=== PATIENT | male | born 1980 | race Caucasian/White ===

== ENCOUNTER 2017-12-25 08:14 | Inpatient (IN) | payer OTHER ==
[2017-12-25 10:27] VITALS: BMI 22.1
--- NOTE | 2017-12-25 10:52 | HP ---
Admission [facility] Chief Complaint: Patient presents for Rehab services for cocaine/opiates/marajuana dependence. Allergies/Adverse Reactions: Allergies Allergy/AdvReac Type Severity Reaction Status Date / Time Fish Containing Products Allergy Severe Swelling Verified 12/25/17 09:59 No Known Drug Allergies Allergy Verified 12/25/17 09:59 History of Present Illness: Patient presents for Rehab services for Opiod/cocaine and Marajuana dependence. Patient began snorting and injecting Heroin at age 23. Injects up to one bundle daily. Also starting smoking cocaine at age 23 and Marajuana at age 14. Smokes marajuana weekly and uses up to 100 dollars worth of cocaine daily. Last time patient used heroin and cocaine was 12/24/17. Has history of Bipolar disorder and Hep C (treated in 2010). Denies SI/HI and suicide attempts. Currently treated with Suboxone but patient does not take medication when using heroin. Prescription verified in ISTOP reference number [id number]. last dose of suboxone today, 8mg film divided in 4 pieces and patient took 1/4 (2mg). - Ebola screening Have you traveled outside of the country in the last 21 days: No (N) Have you had contact with anyone from an Ebola affected area: No Have you been sick,other than usual withdrawal symptoms: No Do you have a fever: No - Review of Systems Constitutional: Changes in sleep, Unexplained wgt Loss EENT: reports: Nose Congestion Respiratory: reports: No Symptoms reported Cardiac: reports: No Symptoms Reported GI: reports: Poor Fluid Intake, Abdominal cramping Musculoskeletal: reports: Back Pain Integumentary: reports: Rash Neuro: reports: No Symptoms reported Endocrine: reports: Unexplained Weight Loss Hematology: reports: No Symptoms Reported Psychiatric: reports: Anxious, Depressed, other (Forgetful with date) Patient History - Patient Medical History Hx Anemia: No Hx Asthma: No Hx Chronic Obstructive Pulmonary Disease (COPD): No Hx Cancer: No Hx Cardiac Disorders: No Hx Congestive Heart Failure: No Hx Hypertension: No Hx Hypercholesterolemia: No Hx Pacemaker: No HX Cerebrovascular Accident: No Hx Seizures: No Hx Dementia: No Hx Diabetes: No Hx Gastrointestinal Disorders: No Hx Liver Disease: No Hx Genitourinary Disorders: No Hx Sexually Transmitted Disorders: No Hx Renal Disease (ESRD): No Hx Thyroid Disease: No Hx Human Immunodeficiency Virus (HIV): No (NEGATIVE HX) Hx Hepatitis C: Yes (TREATED IN 2010, cleared virus) Hx Depression: Yes Hx Suicide Attempt: No Hx Bipolar Disorder: Yes (ON MED) Hx Schizophrenia: No - Patient Surgical History Past Surgical History: No Hx Neurologic Surgery: No Hx Cataract Extraction: No Hx Cardiac Surgery: No Hx Lung Surgery: No Hx Breast Surgery: No Hx Breast Biopsy: No Hx Abdominal Surgery: No Hx Appendectomy: No Hx Cholecystectomy: No Hx Genitourinary Surgery: No Hx Orthopedic Surgery: No Anesthesia Reaction: No - PPD History Previous Implant?: Yes Documented Results: Positive w/o proof Results: CXR NEG 10/25 PPD to be Administered?: No - Smoking Cessation Smoking history: Current every day smoker Have you smoked in the past 12 months: Yes Aproximately how many cigarettes per day: 20 Cigars Per Day: 0 Hx Chewing Tobacco Use: No Initiated information on smoking cessation: Yes 'Breaking Loose' booklet given: 12/25/17 - Substance & Tx. History Hx Alcohol Use: No Hx Substance Use: Yes Substance Use Type: Alcohol, Cocaine, Marijuana, Opiates Hx Substance Use Treatment: Yes - Substances Abused Heroin Route: Injection Frequency: 1-2 times per week Amount used: 1/2 gm Age of first use: 23 Date of Last Use: 12/24/17 Crack Route: Smoking Frequency: Daily Amount used: $100 Age of first use: 23 Date of Last Use: 12/24/17 Alcohol-beer Route: Oral Frequency: 1-2 times per week Amount used: 2-3 (12 oz.) Age of first use: 15 Date of Last Use: 12/24/17 Family Disease History - Family Disease History Family Disease History: Heart Disease: Father (HTN,alcohol ABUSE, ) Admission Physical Exam S - Vital Signs Vital Signs: Vital Signs - 24 hr 12/25/17 10:22 Temperature 97 F L Pulse Rate 78 Respiratory 20 Rate Blood Pressure 124/91 - Physical General Appearance: Yes: Disheveled, Thin, Anxious HEENTM: Yes: EOMI, Hearing grossly Normal, Normocephalic, Normal Voice, AUBREY, Pharynx Normal, Nasal Congestion Respiratory: Yes: Chest Non-Tender, Lungs Clear, Normal Breath Sounds, No Respiratory Distress, No Accessory Muscle Use Neck: Yes: Within Normal Limits, No masses,lesions,Nodules, Supple, Trachea in good position Breast: Yes: Breast Exam Deferred Cardiology: Yes: Regular Rhythm, Regular Rate, S1, S2 Abdominal: Yes: Normal Bowel Sounds, Non Tender, Flat, Soft Genitourinary: Yes: Within Normal Limits Back: Yes: Normal Inspection, Muscle Spasm Musculoskeletal: Yes: full range of Motion, Gait Steady, Back pain, Muscle Pain Extremities: Yes: Normal Range of Motion, Non-Tender, Other (track osorio) Neurological: Yes: oil lease buyer II-XII NML intact, Fully Oriented, Alert, Motor Strength 5/5 Integumentary: Yes: Normal Color, Dry, Warm, Track Osorio Lymphatic: Yes: Within Normal Limits - Diagnostic (1) Weight loss Current Visit: Yes Status: Acute (2) Encounter for monitoring Suboxone maintenance therapy Current Visit: Yes Status: Acute (3) Bipolar I disorder with depression Current Visit: Yes Status: Chronic (4) Cannabis dependence, uncomplicated Current Visit: Yes Status: Chronic (5) Cocaine dependence, uncomplicated Current Visit: Yes Status: Chronic (6) Nicotine dependence Current Visit: Yes Status: Chronic Qualifiers: Nicotine product type: cigarettes Substance use status: uncomplicated Qualified Code(s): F17.210 - Nicotine dependence, cigarettes, uncomplicated (7) Opioid dependence Current Visit: Yes Status: Chronic Qualifiers: Substance use status: uncomplicated Qualified Code(s): F11.20 - Opioid dependence, uncomplicated Cleared for Admission [facility] - Detox or Rehab Claeared for Rehab Admission: Yes [facility] Breath Alcohol Content Breath Alcohol Content: 0 Urine Drug Screen - Results Drug Screen Negative: No Urine Drug Screen Results: THC-Marijuana, JODEE-Cocaine, OPI-Opiates, TCA- Tricyclic Antidepress Inpatient Rehab Admission - Initial Determination Are CD services needed?: Yes Free of communicable disease: Yes Not in need of hospitalization: Yes - Rehab Admission Criteria Previous failed treatment: Yes Poor recovery environment: Yes Comorbidities: Yes Lacks judgement: Yes Patient is meeting Inpatient Rehab admission criteria:: Yes
[2017-12-25] MEDS ORDERED: guaiFENesin/D-METHORPHAN HB 10 ML UNIT-DOSE CUPS PO PRN (10:59)
[2017-12-25] MEDS ORDERED: ACETAMINOPHEN 325 MG TABLET (FP) PO PRN (10:59)
[2017-12-25] MEDS ORDERED: MAGNESIUM CITRATE 300 ML BOTTLE PO PRN (10:59)
[2017-12-25] MEDS ORDERED: MAG HYDROX/AL HYDROX/SIMETH 30 ML UNIT-DOSE CUP PO PRN (10:59)
[2017-12-25] MEDS ORDERED: IBUPROFEN 400 MG TABLET (FP) PO PRN (10:59)
[2017-12-25] MEDS ORDERED: MAGNESIUM HYDROX 2400MG/30ML ORAL SUSPENSION 30 ML CUP PO PRN (10:59)
[2017-12-25] MEDS ORDERED: LOPERAMIDE HCL 2 MG CAPSULE PO PRN (10:59)
[2017-12-25] MEDS ORDERED: MENTHOL/PHENOL 1 EACH UD MM PRN (10:59)
[2017-12-25] MEDS ORDERED: P-EPHED 60MG/TRIPROLIDI 2.5MG TABLET PO PRN (10:59)
[2017-12-25] MEDS ORDERED: NICOTINE POLACRILEX 2 MG GUM BUC PRN (11:04)
[2017-12-25] MEDS ORDERED: BUPRENORPHINE/NALOXONE 2 MG/0.5 MG FILM PACKET SL ONE (13:45)
[2017-12-25 16:15] LABS: HEMATOCRIT 39.9 % (35.4-49); HEMOGLOBIN 13.6 GM/dL (11.7-16.9); MCH 29.7 pg (25.7-33.7); MCHC 34.1 g/dl (32.0-35.9); MEAN PLT VOLUME 7.4 fl (7.5-11.1); PLATELET COUNT 323 K/MM3 (134-434); RBC 4.59 M/mm3 (4.00-5.60); RDW 12.9 % (11.9-15.9); WHITE BLOOD COUNT 7.5 K/mm3 (4.0-10.0)
[2017-12-25 17:27] LABS: URINE APPEARANCE SLCLOUDY; URINE BILIRUBIN NEGATIVE (<2.0 mg/dL); URINE COLOR YELLOW; URINE GLUCOSE (UA) NEGATIVE (NEGATIVE); URINE KETONE NEGATIVE (NEGATIVE); URINE LEUK ESTERASE NEGATIVE (NEGATIVE); URINE NITRITE NEGATIVE (NEGATIVE); URINE PROTEIN NEGATIVE (NEGATIVE); URINE UROBILINOGEN NEGATIVE mg/dL (0.2-1.0)
[2017-12-25 18:13] LABS: ALBUMIN 3.8 g/dl (3.4-5.0); ALK PHOS 84 U/L (45-117); ANION GAP 8 (8-16); BILIRUBIN,TOTAL 0.3 mg/dL (0.2-1.0); BLOOD UREA NITROGEN 11 mg/dL (7-18); CHLORIDE 101 mmol/L (98-107); CO2 30 mmol/L (21-32); CREATININE 0.8 mg/dL (0.7-1.3); GLUCOSE,RANDOM 91 mg/dL (74-106); POTASSIUM 5.1 mmol/L (3.5-5.1); SGOT/AST 17 U/L (15-37); SGPT/ALT 19 U/L (12-78); SODIUM 139 mmol/L (136-145); TOT PROT 7.5 g/dl (6.4-8.2)
[2017-12-25] MEDS: THIAMINE HCL 100 MG TABLET (FP) PO SCH (21:13)
[2017-12-25] MEDS ORDERED: MELATONIN 5 MG TABLETS PO PRN (22:00)
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
[2017-12-26] MEDS: BUPRENORPHINE/NALOXONE 2 MG/0.5 MG FILM PACKET SL SCH (09:48)
[2017-12-26] MEDS: FLUCONAZOLE 100 MG TABLET (UD) PO SCH (09:48)
[2017-12-26] MEDS: PRENATAL VITAMINS W/ FOLIC ACID TABLET (FP) PO SCH (09:48)
[2017-12-26] MEDS: NICOTINE 21 MG/24 HOURS TOPICAL PATCH TD SCH (09:49)
--- NOTE | 2017-12-26 12:02 | EKG ---
Test Reason : Blood Pressure : / mmHG Vent. Rate : 066 BPM Atrial Rate : 066 BPM P-R Int : 172 ms QRS Dur : 096 ms QT Int : 412 ms P-R-T Axes : 066 045 047 degrees QTc Int : 431 ms NORMAL SINUS RHYTHM NORMAL ECG NO PREVIOUS ECGS AVAILABLE Confirmed by JO-ANN FISCHER MD ([id number]) on 12/26/2017 12:02:11 PM Referred By: Francisco ORTIZ Confirmed By:JO-ANN FISCHER MD
[2017-12-26] MEDS: THIAMINE HCL 100 MG TABLET (FP) PO SCH (21:07)
[2017-12-26] MEDS: ARIPiprazole 15 MG TABLET PO SCH (21:09)
[2017-12-27] MEDS: BUPRENORPHINE/NALOXONE 2 MG/0.5 MG FILM PACKET SL SCH (09:47)
[2017-12-27] MEDS: FLUCONAZOLE 100 MG TABLET (UD) PO SCH (09:47)
[2017-12-27] MEDS: PRENATAL VITAMINS W/ FOLIC ACID TABLET (FP) PO SCH (09:47)
[2017-12-27] MEDS: NICOTINE 21 MG/24 HOURS TOPICAL PATCH TD SCH (09:48)
[2017-12-27] MEDS: ARIPiprazole 15 MG TABLET PO SCH (21:19)
[2017-12-27] MEDS: THIAMINE HCL 100 MG TABLET (FP) PO SCH (21:19)
[2017-12-28] MEDS: PRENATAL VITAMINS W/ FOLIC ACID TABLET (FP) PO SCH (09:31)
[2017-12-28] MEDS: BUPRENORPHINE/NALOXONE 2 MG/0.5 MG FILM PACKET SL SCH (09:32)
[2017-12-28] MEDS: NICOTINE 21 MG/24 HOURS TOPICAL PATCH TD SCH (09:32)
[2017-12-28] MEDS: ARIPiprazole 15 MG TABLET PO SCH (21:16)
[2017-12-28] MEDS: THIAMINE HCL 100 MG TABLET (FP) PO SCH (21:16)
[2017-12-29] MEDS: BUPRENORPHINE/NALOXONE 2 MG/0.5 MG FILM PACKET SL SCH (09:29)
[2017-12-29] MEDS: PRENATAL VITAMINS W/ FOLIC ACID TABLET (FP) PO SCH (09:29)
[2017-12-29] MEDS: NICOTINE 21 MG/24 HOURS TOPICAL PATCH TD SCH (09:29)
[2017-12-29] MEDS: ARIPiprazole 15 MG TABLET PO SCH (21:06)
[2017-12-29] MEDS: THIAMINE HCL 100 MG TABLET (FP) PO SCH (21:06)
[2017-12-30] MEDS: NICOTINE 21 MG/24 HOURS TOPICAL PATCH TD SCH (09:33)
[2017-12-30] MEDS: PRENATAL VITAMINS W/ FOLIC ACID TABLET (FP) PO SCH (09:33)
[2017-12-30] MEDS: BUPRENORPHINE/NALOXONE 2 MG/0.5 MG FILM PACKET SL SCH (09:33)
--- NOTE | 2017-12-30 14:55 | PN ---
S Progress Note Note: patient c/o insomnia andwas on Ambien , discussed indications/properties of Belsomra, patient agreed to start.
[2017-12-30] MEDS: ARIPiprazole 15 MG TABLET PO SCH (21:07)
[2017-12-30] MEDS: SUVOREXANT 10 MG TABLET PO SCH (21:07)
[2017-12-30] MEDS: THIAMINE HCL 100 MG TABLET (FP) PO SCH (21:07)
[2017-12-31] MEDS: BUPRENORPHINE/NALOXONE 2 MG/0.5 MG FILM PACKET SL SCH (06:17)
[2017-12-31] MEDS: NICOTINE 21 MG/24 HOURS TOPICAL PATCH TD SCH (09:44)
[2017-12-31] MEDS: PRENATAL VITAMINS W/ FOLIC ACID TABLET (FP) PO SCH (09:44)
[2017-12-31] MEDS: THIAMINE HCL 100 MG TABLET (FP) PO SCH (21:58)
[2017-12-31] MEDS: ARIPiprazole 15 MG TABLET PO SCH (21:58)
[2017-12-31] MEDS: SUVOREXANT 10 MG TABLET PO SCH (21:58)
[2018-01-01] MEDS: BUPRENORPHINE/NALOXONE 2 MG/0.5 MG FILM PACKET SL SCH (08:26)
[2018-01-01] MEDS: PRENATAL VITAMINS W/ FOLIC ACID TABLET (FP) PO SCH (10:00)
[2018-01-01] MEDS: NICOTINE 21 MG/24 HOURS TOPICAL PATCH TD SCH (10:00)
--- NOTE | 2018-01-01 11:42 | PN ---
S Progress Note Note: patient c/o sedations in am, thinks from Abilify, will decrease to 10 mg po hs, monitor progress.
[2018-01-01] MEDS: SUVOREXANT 10 MG TABLET PO SCH (21:06)
[2018-01-01] MEDS: THIAMINE HCL 100 MG TABLET (FP) PO SCH (21:06)
[2018-01-01] MEDS: ARIPiprazole 10 MG TABLET PO SCH (21:06)
[2018-01-02] MEDS: BUPRENORPHINE/NALOXONE 2 MG/0.5 MG FILM PACKET SL SCH (06:13)
[2018-01-02] MEDS: PRENATAL VITAMINS W/ FOLIC ACID TABLET (FP) PO SCH (09:54)
[2018-01-02] MEDS: NICOTINE 21 MG/24 HOURS TOPICAL PATCH TD SCH (09:54)
[2018-01-02] MEDS: ARIPiprazole 10 MG TABLET PO SCH (21:11)
[2018-01-02] MEDS: THIAMINE HCL 100 MG TABLET (FP) PO SCH (21:12)
[2018-01-02] MEDS: SUVOREXANT 10 MG TABLET PO SCH (21:12)
[2018-01-03] MEDS: BUPRENORPHINE/NALOXONE 2 MG/0.5 MG FILM PACKET SL SCH (06:02)
[2018-01-03 06:30] VITALS: BP 111/61; PULSE 86; TEMP 98.2
[2018-01-03] MEDS: PRENATAL VITAMINS W/ FOLIC ACID TABLET (FP) PO SCH (09:38)
[2018-01-03] MEDS: NICOTINE 21 MG/24 HOURS TOPICAL PATCH TD SCH (09:38)
--- NOTE | 2018-01-03 10:10 | PN ---
Psychiatric Progress Note Vital Signs: Vital Signs Period Temp Pulse Resp BP Sys/Brock Pulse Ox Last 24 Hr 98.2 F 86 16- 111/61 Date of Session: 01/03/18 Chief Complaint:: discharge visit HPI: patient addressed opioid, cocaine, nicotine dependence comorbid bipolar disoder. ROS: wnl Current Medications: Active Medications Generic Name Dose Route Start Last Admin Trade Name Freq PRN Reason Stop Dose Admin Acetaminophen 650 mg 12/25/17 10:59 Tylenol - PO Q4H PRN FEVER Al Hydroxide/Mg Hydroxide 30 ml 12/25/17 10:59 Mylanta Oral Suspension - PO Q6H PRN DYSPEPSIA Aripiprazole 10 mg 01/01/18 22:00 01/02/18 21:11 Abilify PO 10 mg HS YARELIS Administration Buprenorphine/Naloxone 2 each 12/31/17 06:00 01/03/18 06:02 Suboxone 2mg/0.5mg Sl Film - SL 01/06/18 05:59 2 each DAILY@0600 YARELIS Administration Eucalyptus/Menthol/Phenol/Sorbitol 1 each 12/25/17 10:59 Cepastat Lozenge - MM Q4H PRN SORE THROAT Guaifenesin 10 ml 12/25/17 10:59 Robitussin Dm - PO Q6H PRN COUGH Ibuprofen 400 mg 12/25/17 10:59 Motrin - PO Q6H PRN Pain level 4-6 Loperamide HCl 4 mg 12/25/17 10:59 Imodium - PO Q6H PRN DIARRHEA Magnesium Citrate 300 ml 12/25/17 10:59 Citroma - PO Q48H PRN CONSTIPATION Magnesium Hydroxide 30 ml 12/25/17 10:59 Milk Of Magnesia - PO DAILY PRN CONSTIPATION Melatonin 5 mg 12/25/17 22:00 12/29/17 21:06 Melatonin PO 5 mg HS PRN Administration INSOMNIA Nicotine 21 mg 12/26/17 10:00 01/03/18 09:38 Nicoderm Patch - TD Not Given DAILY YARELIS Nicotine Polacrilex 2 mg 12/25/17 11:04 Nicorette Gum - BUC Q2H PRN NICOTINE REPLACEMENT RX Multivit/Folic Acid/Iron 1 tab 12/26/17 10:00 01/03/18 09:38 Vitamins (Sjr) - PO Not Given DAILY YARELIS Pseudoephedrine/Triprolidine 1 combo 12/25/17 10:59 Actifed - PO TID PRN NASAL CONGESTION Suvorexant 10 mg 12/30/17 22:00 01/02/18 21:12 Belsomra PO 01/06/18 21:59 10 mg HS YARELIS Administration Thiamine HCl 100 mg 12/25/17 22:00 01/02/18 21:12 Vitamin B1 - PO 100 mg HS YARELIS Administration Current Side Effect: No Lab tests ordered: No Lab tests reviewed: Yes Provider note:: patient has completed today his treatment and met his identified goals, will continue to address his issues at the next level of care. Patient was provided with script for abilify 10 mg po hs,stable for discharge today. Total face to face time:: 10 Mental Status Exam - Mental Status Exam Alert and Oriented to: Time, Place, Person Cognitive Function: Grossly Intact Patient Appearance: Well Groomed Mood: Hopeful Affect: Appropriate, Mood Congruent Patient Behavior: Appropriate, Cooperative Speech Pattern: Clear, Appropriate Voice Loudness: Normal Thought Process: Intact, Goal Oriented Thought Disorder: Not Present Hallucinations: Denies Suicidal Ideation: Denies Homicidal Ideation: Denies Insight/Judgement: Fair Sleep: Fair Appetite: Fair Muscle strength/Tone: Normal Gait/Station: Normal Psychiatric Treatment Plan - Problem List (1) Bipolar I disorder with depression Current Visit: Yes (2) Cocaine dependence, uncomplicated Current Visit: Yes (3) Nicotine dependence Current Visit: Yes Qualifiers: Nicotine product type: cigarettes Substance use status: uncomplicated Qualified Code(s): F17.210 - Nicotine dependence, cigarettes, uncomplicated (4) Opioid dependence Current Visit: Yes Qualifiers: Substance use status: uncomplicated Qualified Code(s): F11.20 - Opioid dependence, uncomplicated
== END 2018-01-03 10:25 | disposition home or self-care (01) | DRG 772 ==
LOC: YASAS 08:14 → Y5N 13:24
PROVIDERS: ADMIT Psychiatry & Neurology Psychiatry; ATTEND Psychiatry & Neurology Psychiatry
PROC: HZ42ZZZ Group Counseling for Substance Abuse Treatment, Cognitive-Behavioral (ICD-10-PCS; principal; 2017-12-25)
DX: F11.20 Opioid dependence, uncomplicated (principal); F14.20 Cocaine dependence, uncomplicated; F17.210 Nicotine dependence, cigarettes, uncomplicated; F31.89 Other bipolar disorder; R63.4 Abnormal weight loss; Z68.22 Body mass index [BMI] 22.0-22.9, adult; Z86.19 Personal history of other infectious and parasitic diseases; Z51.81 Encounter for therapeutic drug level monitoring; Z59.0 Homelessness
CPT/HCPCS: 36415; 71046-TC-FY; 80053; 81003; 85027; 86593; 87389; 93005; 93010

== ENCOUNTER 2019-04-07 08:04 | Inpatient (IN) | payer OTHER ==
[2019-04-07 08:23] VITALS: BMI 22.1
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
[2019-04-07] MEDS ORDERED: MAG HYDROX/AL HYDROX/SIMETH 30 ML UNIT-DOSE CUP PO PRN (09:55)
[2019-04-07] MEDS ORDERED: IBUPROFEN 400 MG TABLET (FP) PO PRN (09:55)
[2019-04-07] MEDS ORDERED: PROCHLORPERAZINE MALEATE 5 MG TABLET PO PRN (09:55)
[2019-04-07] MEDS ORDERED: ACETAMINOPHEN 325 MG TABLET (FP) PO PRN ×2 (09:55)
[2019-04-07] MEDS ORDERED: MAGNESIUM CITRATE 300 ML BOTTLE PO PRN (09:55)
[2019-04-07] MEDS ORDERED: MAGNESIUM HYDROX 2400MG/30ML ORAL SUSPENSION 30 ML CUP PO PRN (09:55)
[2019-04-07] MEDS ORDERED: BISMUTH SUBSALICYLATE 262 MG/15 ML BTL PO PRN (09:55)
[2019-04-07] MEDS ORDERED: NICOTINE POLACRILEX 2 MG GUM BUC PRN (09:55)
[2019-04-07] MEDS ORDERED: hydrOXYzine PAMOATE 25 MG CAPSULE (FP) PO PRN (09:55)
[2019-04-07] MEDS ORDERED: MENTHOL/PHENOL 1 EACH UD MM PRN (09:55)
[2019-04-07] MEDS ORDERED: MELATONIN 5 MG TABLETS PO PRN (09:55)
[2019-04-07] MEDS ORDERED: cloNIDine HCL 0.1 MG TABLET PO PRN (09:58)
[2019-04-07] MEDS ORDERED: METHADONE HCL 10 MG TABLET (FOR DETOX USE ONLY) PO ONE (10:40)
[2019-04-07] MEDS: METHOCARBAMOL 500 MG TABLET PO PRN ×2 (12:29→22:23)
[2019-04-07] MEDS: PRENATAL VITAMINS W/ FOLIC ACID TABLET (FP) PO SCH (12:29)
[2019-04-07] MEDS: THIAMINE HCL 100 MG TABLET (FP) PO SCH (22:22)
[2019-04-08] MEDS ORDERED: METHADONE HCL 5 MG TABLET (FOR DETOX USE ONLY) PO ONE (10:00)
[2019-04-08 10:11] LABS: HEMATOCRIT 38.1 % (35.4-49); HEMOGLOBIN 12.8 GM/dL (11.7-16.9); MCHC 33.7 g/dl (32.0-35.9); MEAN CELL VOLUME 85.9 fl (80-96); MEAN PLT VOLUME 7.1 fl (7.5-11.1); PLATELET COUNT 348 K/MM3 (134-434); RBC 4.44 M/mm3 (4.00-5.60); RDW 13.6 % (11.9-15.9); WHITE BLOOD COUNT 8.1 K/mm3 (4.0-10.0)
[2019-04-08 10:39] LABS: ALBUMIN 3.4 g/dl (3.4-5.0); BILIRUBIN,TOTAL 0.4 mg/dL (0.2-1); BLOOD UREA NITROGEN 8.7 mg/dL (7-18); CALCIUM 8.9 mg/dL (8.5-10.1); CREATININE 0.6 mg/dL (0.55-1.3); POTASSIUM 4.4 mmol/L (3.5-5.1); TOT PROT 6.8 g/dl (6.4-8.2)
[2019-04-08] MEDS: PRENATAL VITAMINS W/ FOLIC ACID TABLET (FP) PO SCH (10:53)
[2019-04-08] MEDS: METHOCARBAMOL 500 MG TABLET PO PRN ×2 (10:53→16:48)
--- NOTE | 2019-04-08 13:28 | PN ---
[facility] COWS - Scale Resting Pulse: 1= [place] 81-100 Sweatin= Chills/Flushing Restless Observation: 1= Difficult to Sit Still Pupil Size: 1= Pupils >than Normal Bone or Joint Aches: 2= Severe Diffuse Aches Runny Nose/ Eye Tearin= Runny Nose/Eyes GI Upset > 30mins: 1= Stomach Cramp Tremor Observation of Outstretched Hands: 2= Slight Tremor Visible Yawning Observation: 1= 1-2x During Session Anxiety or Irritability: 2=Irritable/Anxious Goose Flesh Skin: 0=Smooth Skin COWS Score: 14 S Progress Note (SOAP) Subjective: alert,irritable,anxious,pain in the body back,interrupted sleep Objective: 04/08/19 13:26 Vital Signs Temperature 97.3 F L 04/08/19 13:12 Pulse Rate 68 04/08/19 13:12 Respiratory Rate 18 04/08/19 13:12 Blood Pressure 113/67 04/08/19 13:12 O2 Sat by Pulse Oximetry (%) Laboratory Last Values WBC 8.1 K/mm3 (4.0-10.0) 04/08/19 07:00 RBC 4.44 M/mm3 (4.00-5.60) 04/08/19 07:00 Hgb 12.8 GM/dL (11.7-16.9) 04/08/19 07:00 Hct 38.1 % (35.4-49) 04/08/19 07:00 MCV 85.9 fl (80-96) 04/08/19 07:00 MCH 29.0 pg (25.7-33.7) 04/08/19 07:00 MCHC 33.7 g/dl (32.0-35.9) 04/08/19 07:00 RDW 13.6 % (11.9-15.9) 04/08/19 07:00 Plt Count 348 K/MM3 (134-434) 04/08/19 07:00 MPV 7.1 fl (7.5-11.1) L 04/08/19 07:00 Sodium 139 mmol/L (136-145) 04/08/19 07:00 Potassium 4.4 mmol/L (3.5-5.1) 04/08/19 07:00 Chloride 105 mmol/L (98-107) 04/08/19 07:00 Carbon Dioxide 28 mmol/L (21-32) 04/08/19 07:00 Anion Gap 6 MMOL/L (8-16) L 04/08/19 07:00 BUN 8.7 mg/dL (7-18) 04/08/19 07:00 Creatinine 0.6 mg/dL (0.55-1.3) 04/08/19 07:00 Est GFR (CKD-EPI)AfAm 147.82 04/08/19 07:00 Est GFR (CKD-EPI)NonAf 127.55 04/08/19 07:00 Random Glucose 100 mg/dL (74-106) 04/08/19 07:00 Calcium 8.9 mg/dL (8.5-10.1) 04/08/19 07:00 Total Bilirubin 0.4 mg/dL (0.2-1) 04/08/19 07:00 AST 35 U/L (15-37) 04/08/19 07:00 ALT 29 U/L (13-61) 04/08/19 07:00 Alkaline Phosphatase 78 U/L (45-117) 04/08/19 07:00 Total Protein 6.8 g/dl (6.4-8.2) 04/08/19 07:00 Albumin 3.4 g/dl (3.4-5.0) 04/08/19 07:00 04/08/19 13:27 rpr pending Assessment: 04/08/19 13:27 withdrawal symptom Plan: continue detox methadone regimen
[2019-04-08] MEDS: THIAMINE HCL 100 MG TABLET (FP) PO SCH (22:23)
[2019-04-09] MEDS ORDERED: METHADONE HCL 10 MG TABLET (FOR DETOX USE ONLY) PO ONE (10:00)
[2019-04-09] MEDS: PRENATAL VITAMINS W/ FOLIC ACID TABLET (FP) PO SCH (10:39)
[2019-04-09] MEDS: METHOCARBAMOL 500 MG TABLET PO PRN (10:39)
--- NOTE | 2019-04-09 11:22 | PN ---
S COWS - Scale Resting Pulse: 0= [place] 80 or Below Sweatin= Chills/Flushing Restless Observation: 0= Sits Still Pupil Size: 1= Pupils >than Normal Bone or Joint Aches: 1= Mild Discomfort Runny Nose/ Eye Tearin= Nasal Congestion GI Upset > 30mins: 1= Stomach Cramp Tremor Observation of Outstretched Hands: 2= Slight Tremor Visible Yawning Observation: 2= >3x During Session Anxiety or Irritability: 2=Irritable/Anxious Goose Flesh Skin: 0=Smooth Skin COWS Score: 11 [facility] Progress Note (SOAP) Subjective: doing well with methadone detox regimen ate 90% breakfast tremor and sweat Objective: 04/09/19 11:24 Vital Signs Temperature 98.6 F 04/09/19 09:09 Pulse Rate 76 04/09/19 09:09 Respiratory Rate 18 04/09/19 09:09 Blood Pressure 100/61 04/09/19 09:09 O2 Sat by Pulse Oximetry (%) Laboratory Last Values WBC 8.1 K/mm3 (4.0-10.0) 04/08/19 07:00 RBC 4.44 M/mm3 (4.00-5.60) 04/08/19 07:00 Hgb 12.8 GM/dL (11.7-16.9) 04/08/19 07:00 Hct 38.1 % (35.4-49) 04/08/19 07:00 MCV 85.9 fl (80-96) 04/08/19 07:00 MCH 29.0 pg (25.7-33.7) 04/08/19 07:00 MCHC 33.7 g/dl (32.0-35.9) 04/08/19 07:00 RDW 13.6 % (11.9-15.9) 04/08/19 07:00 Plt Count 348 K/MM3 (134-434) 04/08/19 07:00 MPV 7.1 fl (7.5-11.1) L 04/08/19 07:00 Sodium 139 mmol/L (136-145) 04/08/19 07:00 Potassium 4.4 mmol/L (3.5-5.1) 04/08/19 07:00 Chloride 105 mmol/L (98-107) 04/08/19 07:00 Carbon Dioxide 28 mmol/L (21-32) 04/08/19 07:00 Anion Gap 6 MMOL/L (8-16) L 04/08/19 07:00 BUN 8.7 mg/dL (7-18) 04/08/19 07:00 Creatinine 0.6 mg/dL (0.55-1.3) 04/08/19 07:00 Est GFR (CKD-EPI)AfAm 147.82 04/08/19 07:00 Est GFR (CKD-EPI)NonAf 127.55 04/08/19 07:00 Random Glucose 100 mg/dL (74-106) 04/08/19 07:00 Calcium 8.9 mg/dL (8.5-10.1) 04/08/19 07:00 Total Bilirubin 0.4 mg/dL (0.2-1) 04/08/19 07:00 AST 35 U/L (15-37) 04/08/19 07:00 ALT 29 U/L (13-61) 04/08/19 07:00 Alkaline Phosphatase 78 U/L (45-117) 04/08/19 07:00 Total Protein 6.8 g/dl (6.4-8.2) 04/08/19 07:00 Albumin 3.4 g/dl (3.4-5.0) 04/08/19 07:00 RPR Titer Nonreactive (NONREACTIVE) 04/08/19 07:00 lab noted Assessment: opiate withdrawal sx alert oriented x 3 tolerate food and fluid well no nausea no vomiting no dizziness Plan: continue methadone detox
--- NOTE | 2019-04-09 11:37 | PN ---
[facility] COWS - Scale Resting Pulse: 0= [place] 80 or Below Sweatin= Chills/Flushing Restless Observation: 0= Sits Still Pupil Size: 1= Pupils >than Normal Bone or Joint Aches: 1= Mild Discomfort Runny Nose/ Eye Tearin= Nasal Congestion GI Upset > 30mins: 1= Stomach Cramp Tremor Observation of Outstretched Hands: 1= Tremor Morrison, Not Seen Yawning Observation: 2= >3x During Session Anxiety or Irritability: 1=Feels Anxious/Irritable Goose Flesh Skin: 0=Smooth Skin COWS Score: 9 [facility] Progress Note (SOAP) Subjective: dong well with methadone detox regimen ate 90% breakfast mild sweat ensure 120 ml bid po due to bmi 22 right lower leg 2 cm laceration healing well no exudation recommend to keep area clean and dry Objective: 04/09/19 11:42 Vital Signs Temperature 98.6 F 04/09/19 09:09 Pulse Rate 76 04/09/19 09:09 Respiratory Rate 18 04/09/19 09:09 Blood Pressure 100/61 04/09/19 09:09 O2 Sat by Pulse Oximetry (%) Laboratory Last Values WBC 8.1 K/mm3 (4.0-10.0) 04/08/19 07:00 RBC 4.44 M/mm3 (4.00-5.60) 04/08/19 07:00 Hgb 12.8 GM/dL (11.7-16.9) 04/08/19 07:00 Hct 38.1 % (35.4-49) 04/08/19 07:00 MCV 85.9 fl (80-96) 04/08/19 07:00 MCH 29.0 pg (25.7-33.7) 04/08/19 07:00 MCHC 33.7 g/dl (32.0-35.9) 04/08/19 07:00 RDW 13.6 % (11.9-15.9) 04/08/19 07:00 Plt Count 348 K/MM3 (134-434) 04/08/19 07:00 MPV 7.1 fl (7.5-11.1) L 04/08/19 07:00 Sodium 139 mmol/L (136-145) 04/08/19 07:00 Potassium 4.4 mmol/L (3.5-5.1) 04/08/19 07:00 Chloride 105 mmol/L (98-107) 04/08/19 07:00 Carbon Dioxide 28 mmol/L (21-32) 04/08/19 07:00 Anion Gap 6 MMOL/L (8-16) L 04/08/19 07:00 BUN 8.7 mg/dL (7-18) 04/08/19 07:00 Creatinine 0.6 mg/dL (0.55-1.3) 04/08/19 07:00 Est GFR (CKD-EPI)AfAm 147.82 04/08/19 07:00 Est GFR (CKD-EPI)NonAf 127.55 04/08/19 07:00 Random Glucose 100 mg/dL (74-106) 04/08/19 07:00 Calcium 8.9 mg/dL (8.5-10.1) 04/08/19 07:00 Total Bilirubin 0.4 mg/dL (0.2-1) 04/08/19 07:00 AST 35 U/L (15-37) 04/08/19 07:00 ALT 29 U/L (13-61) 04/08/19 07:00 Alkaline Phosphatase 78 U/L (45-117) 04/08/19 07:00 Total Protein 6.8 g/dl (6.4-8.2) 04/08/19 07:00 Albumin 3.4 g/dl (3.4-5.0) 04/08/19 07:00 RPR Titer Nonreactive (NONREACTIVE) 04/08/19 07:00 lab noted Assessment: 04/09/19 11:42 opiate withdrawal sx alert oriented x 3 instruct would care for right lower leg 2 cm laceration patient is able to clean with soap and water pad dry and change bandaide independently Plan: continue methadone detox regimen
[2019-04-09] MEDS: THIAMINE HCL 100 MG TABLET (FP) PO SCH (22:43)
[2019-04-10] MEDS ORDERED: METHADONE HCL 5 MG TABLET (FOR DETOX USE ONLY) PO ONE (06:00)
[2019-04-10 06:44] VITALS: TEMP 98.2
--- NOTE | 2019-04-10 09:38 | PN ---
[facility] COWS - Scale Resting Pulse: 0= [place] 80 or Below Sweatin= No chills or Flushing Restless Observation: 0= Sits Still Pupil Size: 0= Normal to Room Light Bone or Joint Aches: 1= Mild Discomfort Runny Nose/ Eye Tearin= None GI Upset > 30mins: 0= None Tremor Observation of Outstretched Hands: 0= None Yawning Observation: 0= None Anxiety or Irritability: 1=Feels Anxious/Irritable Goose Flesh Skin: 0=Smooth Skin COWS Score: 2 [facility] Progress Note (SOAP) Subjective: alert,no complaint Objective: 04/10/19 09:37 Vital Signs Temperature 98.2 F 04/10/19 06:43 Pulse Rate 75 04/10/19 06:43 Respiratory Rate 18 04/10/19 06:43 Blood Pressure 111/71 04/10/19 06:43 O2 Sat by Pulse Oximetry (%) Assessment: 04/10/19 09:37 detox completed,no withdrawal symptom Plan: discharge today,follow up with [facility] as arrangement
--- NOTE | 2019-04-10 09:40 | DS ---
[facility] Detox Discharge Summary Admission Date: 04/07/19 Discharge Date: 04/10/19 - History Present History: Cannabis Dependence, Cocaine Dependence, Opioid Dependence Additional Comments: fcollow up with [facility] as arrangement Pertinent Past History: nicotine dependence - Physical Exam Results Vital Signs: Vital Signs Temperature 98.2 F 04/10/19 06:43 Pulse Rate 75 04/10/19 06:43 Respiratory Rate 18 04/10/19 06:43 Blood Pressure 111/71 04/10/19 06:43 O2 Sat by Pulse Oximetry (%) Pertinent Admission Physical Exam Findings: withdrawal signs and symptom Laboratory Last Values WBC 8.1 K/mm3 (4.0-10.0) 04/08/19 07:00 RBC 4.44 M/mm3 (4.00-5.60) 04/08/19 07:00 Hgb 12.8 GM/dL (11.7-16.9) 04/08/19 07:00 Hct 38.1 % (35.4-49) 04/08/19 07:00 MCV 85.9 fl (80-96) 04/08/19 07:00 MCH 29.0 pg (25.7-33.7) 04/08/19 07:00 MCHC 33.7 g/dl (32.0-35.9) 04/08/19 07:00 RDW 13.6 % (11.9-15.9) 04/08/19 07:00 Plt Count 348 K/MM3 (134-434) 04/08/19 07:00 MPV 7.1 fl (7.5-11.1) L 04/08/19 07:00 Sodium 139 mmol/L (136-145) 04/08/19 07:00 Potassium 4.4 mmol/L (3.5-5.1) 04/08/19 07:00 Chloride 105 mmol/L (98-107) 04/08/19 07:00 Carbon Dioxide 28 mmol/L (21-32) 04/08/19 07:00 Anion Gap 6 MMOL/L (8-16) L 04/08/19 07:00 BUN 8.7 mg/dL (7-18) 04/08/19 07:00 Creatinine 0.6 mg/dL (0.55-1.3) 04/08/19 07:00 Est GFR (CKD-EPI)AfAm 147.82 04/08/19 07:00 Est GFR (CKD-EPI)NonAf 127.55 04/08/19 07:00 Random Glucose 100 mg/dL (74-106) 04/08/19 07:00 Calcium 8.9 mg/dL (8.5-10.1) 04/08/19 07:00 Total Bilirubin 0.4 mg/dL (0.2-1) 04/08/19 07:00 AST 35 U/L (15-37) 04/08/19 07:00 ALT 29 U/L (13-61) 04/08/19 07:00 Alkaline Phosphatase 78 U/L (45-117) 04/08/19 07:00 Total Protein 6.8 g/dl (6.4-8.2) 04/08/19 07:00 Albumin 3.4 g/dl (3.4-5.0) 04/08/19 07:00 RPR Titer Nonreactive (NONREACTIVE) 04/08/19 07:00 - Treatment Hospital Course: Detox Protocol Followed, Detoxed Safely, Responded well, Discharged Condition Good, Rehab Referral Accepted Patient has Accepted a Rehab Referral to: [facility] - Medication Discharge Medications: Ambulatory Orders Fluconazole [Diflucan -] 100 mg PO DAILY 12/24/17 - Diagnosis (1) Opioid dependence with withdrawal Current Visit: Yes Status: Acute (2) Cannabis dependence, uncomplicated Current Visit: Yes Status: Chronic (3) Cocaine dependence, uncomplicated Current Visit: Yes Status: Chronic (4) Nicotine dependence Current Visit: Yes Status: Chronic Qualifiers: Nicotine product type: cigarettes Substance use status: uncomplicated Qualified Code(s): F17.210 - Nicotine dependence, cigarettes, uncomplicated - AMA Did Patient Leave Against Medical Advice: No
[2019-04-10] MEDS: PRENATAL VITAMINS W/ FOLIC ACID TABLET (FP) PO SCH (10:25)
[2019-04-10 13:58] VITALS: BP 114/63; PULSE 67
== END 2019-04-10 14:58 | disposition other institution (70) | DRG 773 ==
LOC: YASAS 08:04 → Y3N 10:19
PROVIDERS: ADMIT Surgery; ATTEND Surgery
PROC: HZ2ZZZZ Detoxification Services for Substance Abuse Treatment (ICD-10-PCS; principal; 2019-04-07)
DX: F11.23 Opioid dependence with withdrawal (principal); F14.20 Cocaine dependence, uncomplicated; F12.20 Cannabis dependence, uncomplicated; F17.210 Nicotine dependence, cigarettes, uncomplicated; F31.9 Bipolar disorder, unspecified; S81.811D Laceration without foreign body, right lower leg, subsequent encounter; Y08.02XD Assault by strike by baseball bat, subsequent encounter
CPT/HCPCS: 36415; 80053; 85027; 86593

== ENCOUNTER 2019-04-10 14:49 | Inpatient (IN) | payer OTHER ==
[2019-04-10] MEDS ORDERED: MAGNESIUM CITRATE 300 ML BOTTLE PO PRN (14:58)
[2019-04-10] MEDS ORDERED: guaiFENesin 200 MG/10 ML 10 ML UNIT-DOSE CUPS PO PRN (14:58)
[2019-04-10] MEDS ORDERED: MENTHOL/PHENOL 1 EACH UD MM PRN (14:58)
[2019-04-10] MEDS ORDERED: ACETAMINOPHEN 325 MG TABLET (FP) PO PRN (14:58)
[2019-04-10] MEDS ORDERED: P-EPHED 60MG/TRIPROLIDI 2.5MG TABLET PO PRN (14:58)
[2019-04-10] MEDS ORDERED: MAGNESIUM HYDROX 2400MG/30ML ORAL SUSPENSION 30 ML CUP PO PRN (14:58)
[2019-04-10] MEDS ORDERED: LOPERAMIDE HCL 2 MG CAPSULE PO PRN (14:58)
--- NOTE | 2019-04-10 14:58 | HP ---
[facility] Rehab Assess/Revision - Admission History Admitted to Rehab from: [facility] Date of Admission to Rehab: 04/10/19 - Vital signs Vital Signs: Vital Signs Period Temp Pulse Resp BP Sys/Brock Pulse Ox Last 24 Hr 98.0 F 83 18 114/70 - Findings Detox History & Physical reviewed: Yes Concur with findings: Yes Comments/Additional Findings: for rehab as protocol Inpatient Rehab Admission - Rehab Decision to Admit Inpatient rehab admission?: Yes - Initial Determination Are CD services needed?: Yes Free of communicable disease: Yes Not in need of hospitalization: Yes - Rehab Admission Criteria Previous failed treatment: Yes Poor recovery environment: Yes Comorbidities: Yes Lacks judgement: No Patient is meeting Inpatient Rehab admission criteria:: Yes
[2019-04-10] MEDS: THIAMINE HCL 100 MG TABLET (FP) PO SCH (21:46)
[2019-04-11] MEDS: PRENATAL VITAMINS W/ FOLIC ACID TABLET (FP) PO SCH (10:20)
[2019-04-11] MEDS: NICOTINE 21 MG/24 HOURS TOPICAL PATCH TD SCH (11:05)
[2019-04-11] MEDS: THIAMINE HCL 100 MG TABLET (FP) PO SCH (21:39)
[2019-04-11] MEDS: MELATONIN 5 MG TABLETS PO PRN (21:39)
[2019-04-12] MEDS: IBUPROFEN 400 MG TABLET (FP) PO PRN ×2 (00:56→10:34)
[2019-04-12] MEDS: hydrOXYzine PAMOATE 25 MG CAPSULE (FP) PO PRN (00:56)
[2019-04-12] MEDS: NICOTINE 21 MG/24 HOURS TOPICAL PATCH TD SCH (10:32)
[2019-04-12] MEDS: PRENATAL VITAMINS W/ FOLIC ACID TABLET (FP) PO SCH (10:33)
[2019-04-12] MEDS: THIAMINE HCL 100 MG TABLET (FP) PO SCH (21:43)
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
[2019-04-13] MEDS ORDERED: BACITRACIN 15 GM TUBE TOPICAL OINTMENT TP SCH (10:00)
[2019-04-13] MEDS: CEPHALEXIN MONOHYDRATE 500 MG CAPSULE (UD) PO SCH ×2 (10:47→21:47)
[2019-04-13] MEDS: NICOTINE 21 MG/24 HOURS TOPICAL PATCH TD SCH (10:47)
[2019-04-13] MEDS: PRENATAL VITAMINS W/ FOLIC ACID TABLET (FP) PO SCH (10:47)
[2019-04-13] MEDS: BACITRACIN 15 GM TUBE TOPICAL OINTMENT TP SCH ×2 (11:08→21:48)
[2019-04-13] MEDS: LIDOCAINE 5% TOPICAL PATCH TP SCH (12:42)
[2019-04-13] MEDS: THIAMINE HCL 100 MG TABLET (FP) PO SCH (21:47)
[2019-04-13] MEDS: CYCLOBENZAPRINE HCL 10 MG TABLET (FP) PO PRN (21:48)
[2019-04-13] MEDS: LIDOCAINE PATCH REMOVAL MC SCH (21:53)
[2019-04-14] MEDS: LIDOCAINE 5% TOPICAL PATCH TP SCH (10:36)
[2019-04-14] MEDS: NICOTINE 21 MG/24 HOURS TOPICAL PATCH TD SCH (10:36)
[2019-04-14] MEDS: PRENATAL VITAMINS W/ FOLIC ACID TABLET (FP) PO SCH (10:36)
[2019-04-14] MEDS: CEPHALEXIN MONOHYDRATE 500 MG CAPSULE (UD) PO SCH ×2 (10:36→21:36)
[2019-04-14] MEDS: BACITRACIN 15 GM TUBE TOPICAL OINTMENT TP SCH ×2 (10:37→21:38)
[2019-04-14] MEDS: IBUPROFEN 400 MG TABLET (FP) PO PRN (10:39)
[2019-04-14] MEDS: CYCLOBENZAPRINE HCL 10 MG TABLET (FP) PO PRN ×2 (10:39→21:36)
--- NOTE | 2019-04-14 12:02 | PN ---
S Progress Note Note: Pt requesting to see psych MD with Detox Admitting hx of Bipolar disorder and on zoloft. Pt completed detox and referred to rehab on 04/10/19. Vital Signs - 24 hr 04/14/19 07:36 Temperature 98.7 F Pulse Rate 83 Respiratory 18 Rate Blood Pressure 117/79 A/P hx depression hx bipolar disorder hx suboxone-MAT Follow up with Psych consult as directed will d/w pt re-suboxone treatment
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
[2019-04-14] MEDS: SERTRALINE HCL 50 MG TABLET (FP) PO SCH (14:44)
[2019-04-14] MEDS: THIAMINE HCL 100 MG TABLET (FP) PO SCH (21:36)
[2019-04-14] MEDS: SUVOREXANT 10 MG TABLET PO PRN (21:37)
[2019-04-14] MEDS: LIDOCAINE PATCH REMOVAL MC SCH (21:38)
[2019-04-15] MEDS: PRENATAL VITAMINS W/ FOLIC ACID TABLET (FP) PO SCH (10:56)
[2019-04-15] MEDS: CEPHALEXIN MONOHYDRATE 500 MG CAPSULE (UD) PO SCH ×2 (10:56→21:52)
[2019-04-15] MEDS: SERTRALINE HCL 50 MG TABLET (FP) PO SCH (10:56)
[2019-04-15] MEDS: BACITRACIN 15 GM TUBE TOPICAL OINTMENT TP SCH ×2 (10:57→21:54)
[2019-04-15] MEDS: LIDOCAINE 5% TOPICAL PATCH TP SCH (10:57)
[2019-04-15] MEDS: IBUPROFEN 400 MG TABLET (FP) PO PRN (10:58)
[2019-04-15] MEDS: CYCLOBENZAPRINE HCL 10 MG TABLET (FP) PO PRN ×2 (10:59→21:54)
[2019-04-15] MEDS: NICOTINE 21 MG/24 HOURS TOPICAL PATCH TD SCH (11:01)
[2019-04-15] MEDS: THIAMINE HCL 100 MG TABLET (FP) PO SCH (21:52)
[2019-04-15] MEDS: LIDOCAINE PATCH REMOVAL MC SCH (21:54)
[2019-04-15] MEDS: SUVOREXANT 10 MG TABLET PO PRN (21:54)
[2019-04-16] MEDS: CEPHALEXIN MONOHYDRATE 500 MG CAPSULE (UD) PO SCH ×2 (10:42→22:02)
[2019-04-16] MEDS: PRENATAL VITAMINS W/ FOLIC ACID TABLET (FP) PO SCH (10:42)
[2019-04-16] MEDS: SERTRALINE HCL 50 MG TABLET (FP) PO SCH (10:42)
[2019-04-16] MEDS: CYCLOBENZAPRINE HCL 10 MG TABLET (FP) PO PRN ×2 (10:43→22:02)
[2019-04-16] MEDS: NICOTINE 21 MG/24 HOURS TOPICAL PATCH TD SCH (10:45)
[2019-04-16] MEDS: LIDOCAINE 5% TOPICAL PATCH TP SCH (11:09)
[2019-04-16] MEDS: BACITRACIN 15 GM TUBE TOPICAL OINTMENT TP SCH ×2 (11:09→22:00)
--- NOTE | 2019-04-16 14:48 | PN ---
[facility] Progress Note Note: This jingle writer called and spoke to pt's suboxone provider, Dr. Ben Cunningham at [facility] at Ph: . Reports pt is on 24 mg sl daily in divided dose of 8 mg/2mg sl tid. Reports pt has a chronic back pain condition due to several fractures on his back. However both providers agreed pt will remain on 8 mg po bid in rehab until discharge and he can re-evaluate and increase to tid at their clinic if desired. But pt requested to start with 2 mg today and 4mg sl bid through the weekend and re-evaluate while here. Vital Signs 04/16/19 07:47 Temperature 97.5 F L Pulse Rate 91 H Respiratory 18 Rate Blood Pressure 128/72 Patient Name: Hernando Nazario Date: 10/15/1979 Address: [address] [place] [id number] Sex: Male Rx Written Rx Dispensed Drug Quantity Days Supply Prescriber Name 01/13/2019 01/16/2019 buprenorphine 8 mg tablet sl 90 30 Ben Cunningham 01/10/2019 01/10/2019 dextroamp-amphetamin 30 mg tab 60 30 MarisaBen 01/10/2019 01/10/2019 tramadol hcl 50 mg tablet 90 30 MarisaBen 12/12/2018 12/13/2018 tramadol hcl 50 mg tablet 90 30 Marisa, Ben Dunlap 12/12/2018 12/13/2018 dextroamp-amphetamin 30 mg tab 60 30 Marisa, Ben Dunlap 12/12/2018 12/13/2018 buprenorphine 8 mg tablet sl 90 30 MarisaBen perez 12/12/2018 12/13/2018 zolpidem tartrate 10 mg tablet 30 30 MarisaBen 12/08/2018 12/08/2018 buprenorphine-naloxone 8-2 mg sl tablet 45 15 Ben Cunningham 11/07/2018 11/07/2018 buprenorphine-naloxone 8-2 mg sl film 90 30 Ben Cunningham 11/07/2018 11/07/2018 dextroamp-amphetamin 20 mg tab 90 30 Ben Cunningham Patient Name: Hernando Horne Date: 10/15/1979 Address: [address] [place] [address] Sex: Male Rx Written Rx Dispensed Drug Quantity Days Supply Prescriber Name 10/07/2018 10/07/2018 suboxone 8 mg-2 mg sl film 90 30 Slick Jimenez (JOSÉ ANTONIO) 08/07/2018 08/07/2018 suboxone 8 mg-2 mg sl film 90 30 Crispin Mock MD 07/10/2018 07/10/2018 suboxone 8 mg-2 mg sl film 90 30 Crispin Mock MD * - Drugs marked with an asterisk are compound drugs. If the compound drug is made up of more than one controlled substance, then each controlled PMHX : denies , denies psych issues . PSHX : denies meds : denies A/P vanda UDS URINE DRUG SCREEN RESULTS Urine Drug Screen Results MTD-Methadone Restart with Suboxone 2 mg/0.5 mg s/l once today Then Suboxone 4 mg/1mg s/l bid @ 0600, 1400 starting 04/17/19 Above doses are pt's choice for restarting. D/w pt will continue to re-evaluate if increased dose to 8 mg twice a day is needed. Pt will follow up with Dr. Cunningham for continuing MAT after rehab. Pt agreed with poc.
[2019-04-16] MEDS ORDERED: BUPRENORPHINE/NALOXONE 2 MG/0.5 MG FILM PACKET SL ONE (14:54)
[2019-04-16] MEDS: LIDOCAINE PATCH REMOVAL MC SCH (22:00)
[2019-04-16] MEDS: THIAMINE HCL 100 MG TABLET (FP) PO SCH (22:03)
[2019-04-17] MEDS: BUPRENORPHINE/NALOXONE 4 MG/1 MG FILM PACKET SL SCH ×2 (05:59→13:31)
[2019-04-17] MEDS: SERTRALINE HCL 50 MG TABLET (FP) PO SCH (10:06)
[2019-04-17] MEDS: PRENATAL VITAMINS W/ FOLIC ACID TABLET (FP) PO SCH (10:06)
[2019-04-17] MEDS: CEPHALEXIN MONOHYDRATE 500 MG CAPSULE (UD) PO SCH ×2 (10:06→22:22)
[2019-04-17] MEDS: LIDOCAINE 5% TOPICAL PATCH TP SCH (10:07)
[2019-04-17] MEDS: NICOTINE 21 MG/24 HOURS TOPICAL PATCH TD SCH (10:07)
[2019-04-17] MEDS: BACITRACIN 15 GM TUBE TOPICAL OINTMENT TP SCH ×2 (10:08→22:22)
[2019-04-17] MEDS: CYCLOBENZAPRINE HCL 10 MG TABLET (FP) PO PRN ×2 (11:54→22:23)
--- NOTE | 2019-04-17 14:56 | PN ---
[facility] Progress Note Note: Psychiatric nurse practitioner note: Belsomra 10mg renewed X3 days. Verbal consent given.
[2019-04-17] MEDS: IBUPROFEN 400 MG TABLET (FP) PO PRN (19:45)
[2019-04-17] MEDS: THIAMINE HCL 100 MG TABLET (FP) PO SCH (22:23)
[2019-04-17] MEDS: LIDOCAINE PATCH REMOVAL MC SCH (22:23)
[2019-04-18] MEDS: BUPRENORPHINE/NALOXONE 4 MG/1 MG FILM PACKET SL SCH ×2 (06:12→13:45)
[2019-04-18] MEDS: CEPHALEXIN MONOHYDRATE 500 MG CAPSULE (UD) PO SCH ×2 (10:36→21:58)
[2019-04-18] MEDS: NICOTINE 21 MG/24 HOURS TOPICAL PATCH TD SCH (10:36)
[2019-04-18] MEDS: LIDOCAINE 5% TOPICAL PATCH TP SCH (10:36)
[2019-04-18] MEDS: PRENATAL VITAMINS W/ FOLIC ACID TABLET (FP) PO SCH (10:36)
[2019-04-18] MEDS: SERTRALINE HCL 50 MG TABLET (FP) PO SCH (10:36)
[2019-04-18] MEDS: BACITRACIN 15 GM TUBE TOPICAL OINTMENT TP SCH ×2 (10:37→22:00)
[2019-04-18] MEDS: CYCLOBENZAPRINE HCL 10 MG TABLET (FP) PO PRN (13:45)
[2019-04-18] MEDS: IBUPROFEN 400 MG TABLET (FP) PO PRN (13:46)
[2019-04-18] MEDS: THIAMINE HCL 100 MG TABLET (FP) PO SCH (21:58)
[2019-04-18] MEDS: SUVOREXANT 10 MG TABLET PO PRN (21:59)
[2019-04-18] MEDS: LIDOCAINE PATCH REMOVAL MC SCH (22:00)
[2019-04-19] MEDS: MAG HYDROX/AL HYDROX/SIMETH 30 ML UNIT-DOSE CUP PO PRN (00:01)
[2019-04-19] MEDS: BUPRENORPHINE/NALOXONE 4 MG/1 MG FILM PACKET SL SCH ×2 (06:04→14:32)
[2019-04-19] MEDS: BACITRACIN 15 GM TUBE TOPICAL OINTMENT TP SCH ×2 (10:58→21:59)
[2019-04-19] MEDS: CEPHALEXIN MONOHYDRATE 500 MG CAPSULE (UD) PO SCH ×2 (10:58→21:56)
[2019-04-19] MEDS: SERTRALINE HCL 50 MG TABLET (FP) PO SCH (10:58)
[2019-04-19] MEDS: NICOTINE 21 MG/24 HOURS TOPICAL PATCH TD SCH (10:59)
[2019-04-19] MEDS: PRENATAL VITAMINS W/ FOLIC ACID TABLET (FP) PO SCH (10:59)
[2019-04-19] MEDS: LIDOCAINE 5% TOPICAL PATCH TP SCH (11:01)
[2019-04-19] MEDS: THIAMINE HCL 100 MG TABLET (FP) PO SCH (21:56)
[2019-04-19] MEDS: CYCLOBENZAPRINE HCL 10 MG TABLET (FP) PO PRN (21:58)
[2019-04-19] MEDS: SUVOREXANT 10 MG TABLET PO PRN (21:58)
[2019-04-19] MEDS: LIDOCAINE PATCH REMOVAL MC SCH (23:14)
[2019-04-20] MEDS: BUPRENORPHINE/NALOXONE 4 MG/1 MG FILM PACKET SL SCH ×2 (06:23→13:54)
[2019-04-20] MEDS: NICOTINE 21 MG/24 HOURS TOPICAL PATCH TD SCH (11:19)
[2019-04-20] MEDS: BACITRACIN 15 GM TUBE TOPICAL OINTMENT TP SCH ×2 (11:20→21:56)
[2019-04-20] MEDS: PRENATAL VITAMINS W/ FOLIC ACID TABLET (FP) PO SCH (11:20)
[2019-04-20] MEDS: SERTRALINE HCL 50 MG TABLET (FP) PO SCH (11:20)
[2019-04-20] MEDS: LIDOCAINE 5% TOPICAL PATCH TP SCH (11:21)
[2019-04-20] MEDS: IBUPROFEN 400 MG TABLET (FP) PO PRN (11:26)
[2019-04-20] MEDS: CYCLOBENZAPRINE HCL 10 MG TABLET (FP) PO PRN ×2 (11:26→21:56)
--- NOTE | 2019-04-20 13:46 | PN ---
[facility] Progress Note Note: Reports sleeping poorly despite taking Belsomra 10 mg/hs. Will increase dosage of medication to 15 mg/hs prn for insomnia
[2019-04-20] MEDS: SUVOREXANT 15 MG TABLET PO PRN (21:55)
[2019-04-20] MEDS: THIAMINE HCL 100 MG TABLET (FP) PO SCH (21:56)
[2019-04-20] MEDS: LIDOCAINE PATCH REMOVAL MC SCH (21:57)
[2019-04-21] MEDS: IBUPROFEN 400 MG TABLET (FP) PO PRN (06:06)
[2019-04-21] MEDS: BUPRENORPHINE/NALOXONE 4 MG/1 MG FILM PACKET SL SCH ×2 (06:07→15:35)
[2019-04-21] MEDS: NICOTINE 21 MG/24 HOURS TOPICAL PATCH TD SCH (10:46)
[2019-04-21] MEDS: SERTRALINE HCL 50 MG TABLET (FP) PO SCH (10:46)
[2019-04-21] MEDS: PRENATAL VITAMINS W/ FOLIC ACID TABLET (FP) PO SCH (10:46)
[2019-04-21] MEDS: LIDOCAINE 5% TOPICAL PATCH TP SCH (10:46)
[2019-04-21] MEDS: BACITRACIN 15 GM TUBE TOPICAL OINTMENT TP SCH ×2 (10:47→22:03)
[2019-04-21] MEDS: CYCLOBENZAPRINE HCL 10 MG TABLET (FP) PO PRN ×2 (10:48→22:02)
[2019-04-21] MEDS: SUVOREXANT 15 MG TABLET PO PRN (22:01)
[2019-04-21] MEDS: THIAMINE HCL 100 MG TABLET (FP) PO SCH (22:02)
[2019-04-21] MEDS: LIDOCAINE PATCH REMOVAL MC SCH (22:03)
[2019-04-22] MEDS: BUPRENORPHINE/NALOXONE 4 MG/1 MG FILM PACKET SL SCH ×2 (06:05→14:23)
[2019-04-22] MEDS: SERTRALINE HCL 50 MG TABLET (FP) PO SCH (10:53)
[2019-04-22] MEDS: LIDOCAINE 5% TOPICAL PATCH TP SCH (10:53)
[2019-04-22] MEDS: PRENATAL VITAMINS W/ FOLIC ACID TABLET (FP) PO SCH (10:53)
[2019-04-22] MEDS: NICOTINE 21 MG/24 HOURS TOPICAL PATCH TD SCH (10:54)
[2019-04-22] MEDS: BACITRACIN 15 GM TUBE TOPICAL OINTMENT TP SCH ×2 (10:55→22:57)
[2019-04-22] MEDS: THIAMINE HCL 100 MG TABLET (FP) PO SCH (22:58)
[2019-04-22] MEDS: LIDOCAINE PATCH REMOVAL MC SCH (22:58)
[2019-04-23] MEDS: BUPRENORPHINE/NALOXONE 4 MG/1 MG FILM PACKET SL SCH ×3 (08:41→14:04)
[2019-04-23] MEDS ORDERED: BUPRENORPHINE/NALOXONE 4 MG/1 MG FILM PACKET SL SCH (10:00)
[2019-04-23] MEDS: NICOTINE 21 MG/24 HOURS TOPICAL PATCH TD SCH (10:40)
[2019-04-23] MEDS: SERTRALINE HCL 50 MG TABLET (FP) PO SCH (10:40)
[2019-04-23] MEDS: PRENATAL VITAMINS W/ FOLIC ACID TABLET (FP) PO SCH (10:40)
[2019-04-23] MEDS: LIDOCAINE 5% TOPICAL PATCH TP SCH (10:40)
[2019-04-23] MEDS: BACITRACIN 15 GM TUBE TOPICAL OINTMENT TP SCH ×2 (10:42→21:51)
[2019-04-23] MEDS: LIDOCAINE PATCH REMOVAL MC SCH (21:52)
[2019-04-23] MEDS: THIAMINE HCL 100 MG TABLET (FP) PO SCH (21:52)
[2019-04-24] MEDS: BUPRENORPHINE/NALOXONE 4 MG/1 MG FILM PACKET SL SCH ×2 (06:38→14:33)
[2019-04-24] MEDS: NICOTINE 21 MG/24 HOURS TOPICAL PATCH TD SCH (10:38)
[2019-04-24] MEDS: SERTRALINE HCL 50 MG TABLET (FP) PO SCH (10:38)
[2019-04-24] MEDS: BACITRACIN 15 GM TUBE TOPICAL OINTMENT TP SCH ×2 (10:38→21:43)
[2019-04-24] MEDS: LIDOCAINE 5% TOPICAL PATCH TP SCH (10:38)
[2019-04-24] MEDS: PRENATAL VITAMINS W/ FOLIC ACID TABLET (FP) PO SCH (10:38)
[2019-04-24] MEDS: CYCLOBENZAPRINE HCL 10 MG TABLET (FP) PO PRN (14:33)
[2019-04-24] MEDS: LIDOCAINE PATCH REMOVAL MC SCH (21:43)
[2019-04-24] MEDS: THIAMINE HCL 100 MG TABLET (FP) PO SCH (21:44)
[2019-04-25] MEDS: BUPRENORPHINE/NALOXONE 4 MG/1 MG FILM PACKET SL SCH ×2 (06:22→14:19)
[2019-04-25] MEDS: PRENATAL VITAMINS W/ FOLIC ACID TABLET (FP) PO SCH (10:15)
[2019-04-25] MEDS: NICOTINE 21 MG/24 HOURS TOPICAL PATCH TD SCH (10:15)
[2019-04-25] MEDS: SERTRALINE HCL 50 MG TABLET (FP) PO SCH (10:15)
[2019-04-25] MEDS: LIDOCAINE 5% TOPICAL PATCH TP SCH (10:16)
[2019-04-25] MEDS: BACITRACIN 15 GM TUBE TOPICAL OINTMENT TP SCH ×2 (10:17→22:13)
[2019-04-25] MEDS: THIAMINE HCL 100 MG TABLET (FP) PO SCH (22:13)
[2019-04-25] MEDS: LIDOCAINE PATCH REMOVAL MC SCH (22:13)
[2019-04-26] MEDS: BUPRENORPHINE/NALOXONE 4 MG/1 MG FILM PACKET SL SCH ×2 (06:21→13:55)
[2019-04-26] MEDS: PRENATAL VITAMINS W/ FOLIC ACID TABLET (FP) PO SCH (10:36)
[2019-04-26] MEDS: SERTRALINE HCL 50 MG TABLET (FP) PO SCH (10:36)
[2019-04-26] MEDS: LIDOCAINE 5% TOPICAL PATCH TP SCH (10:36)
[2019-04-26] MEDS: NICOTINE 21 MG/24 HOURS TOPICAL PATCH TD SCH (10:36)
[2019-04-26] MEDS: BACITRACIN 15 GM TUBE TOPICAL OINTMENT TP SCH ×2 (10:37→22:01)
[2019-04-26] MEDS: LIDOCAINE PATCH REMOVAL MC SCH (22:01)
[2019-04-26] MEDS: THIAMINE HCL 100 MG TABLET (FP) PO SCH (22:01)
[2019-04-26] MEDS: CYCLOBENZAPRINE HCL 10 MG TABLET (FP) PO PRN (22:03)
[2019-04-26] MEDS: MELATONIN 5 MG TABLETS PO PRN (22:03)
[2019-04-26] MEDS: hydrOXYzine PAMOATE 25 MG CAPSULE (FP) PO PRN (22:03)
[2019-04-27] MEDS: BUPRENORPHINE/NALOXONE 4 MG/1 MG FILM PACKET SL SCH ×2 (06:52→14:41)
[2019-04-27] MEDS: NICOTINE 21 MG/24 HOURS TOPICAL PATCH TD SCH (10:38)
[2019-04-27] MEDS: SERTRALINE HCL 50 MG TABLET (FP) PO SCH (10:38)
[2019-04-27] MEDS: PRENATAL VITAMINS W/ FOLIC ACID TABLET (FP) PO SCH (10:38)
[2019-04-27] MEDS: LIDOCAINE 5% TOPICAL PATCH TP SCH (10:38)
[2019-04-27] MEDS: BACITRACIN 15 GM TUBE TOPICAL OINTMENT TP SCH ×2 (10:39→21:57)
--- NOTE | 2019-04-27 15:42 | PN ---
[facility] Progress Note Note: Pt requesting to increase suboxone to 8mg/2mg sl daily in the morming and keep it at 4mg/1mg sl in the afternoon. alert o x 3. Vital Signs 04/27/19 07:50 Temperature 97.7 F Pulse Rate 83 Respiratory 18 Rate Blood Pressure 119/77 NAD Plan:suboxone adjusted as above.
[2019-04-27] MEDS: LIDOCAINE PATCH REMOVAL MC SCH (21:57)
[2019-04-27] MEDS: THIAMINE HCL 100 MG TABLET (FP) PO SCH (21:57)
[2019-04-28] MEDS: BUPRENORPHINE/NALOXONE 8 MG/2 MG FILM PACKET SL SCH (06:31)
[2019-04-28] MEDS: CYCLOBENZAPRINE HCL 10 MG TABLET (FP) PO PRN (06:34)
[2019-04-28] MEDS: LIDOCAINE 5% TOPICAL PATCH TP SCH (10:49)
[2019-04-28] MEDS: PRENATAL VITAMINS W/ FOLIC ACID TABLET (FP) PO SCH (10:49)
[2019-04-28] MEDS: SERTRALINE HCL 50 MG TABLET (FP) PO SCH (10:49)
[2019-04-28] MEDS: NICOTINE 21 MG/24 HOURS TOPICAL PATCH TD SCH (10:49)
[2019-04-28] MEDS: BACITRACIN 15 GM TUBE TOPICAL OINTMENT TP SCH ×2 (10:50→21:49)
[2019-04-28] MEDS: BUPRENORPHINE/NALOXONE 4 MG/1 MG FILM PACKET SL SCH (14:24)
[2019-04-28] MEDS: THIAMINE HCL 100 MG TABLET (FP) PO SCH (21:48)
[2019-04-28] MEDS: LIDOCAINE PATCH REMOVAL MC SCH (21:48)
[2019-04-29] MEDS: BUPRENORPHINE/NALOXONE 8 MG/2 MG FILM PACKET SL SCH (06:04)
[2019-04-29] MEDS: PRENATAL VITAMINS W/ FOLIC ACID TABLET (FP) PO SCH (11:00)
[2019-04-29] MEDS: NICOTINE 21 MG/24 HOURS TOPICAL PATCH TD SCH (11:00)
[2019-04-29] MEDS: BACITRACIN 15 GM TUBE TOPICAL OINTMENT TP SCH ×2 (11:00→22:35)
[2019-04-29] MEDS: SERTRALINE HCL 50 MG TABLET (FP) PO SCH (11:00)
[2019-04-29] MEDS: LIDOCAINE 5% TOPICAL PATCH TP SCH (11:00)
[2019-04-29] MEDS: BUPRENORPHINE/NALOXONE 4 MG/1 MG FILM PACKET SL SCH (13:57)
[2019-04-29] MEDS: CYCLOBENZAPRINE HCL 10 MG TABLET (FP) PO PRN (15:59)
[2019-04-29] MEDS: THIAMINE HCL 100 MG TABLET (FP) PO SCH (22:35)
[2019-04-29] MEDS: LIDOCAINE PATCH REMOVAL MC SCH (22:35)
[2019-04-30] MEDS: BUPRENORPHINE/NALOXONE 8 MG/2 MG FILM PACKET SL SCH (06:10)
[2019-04-30] MEDS: LIDOCAINE 5% TOPICAL PATCH TP SCH (11:26)
[2019-04-30] MEDS: NICOTINE 21 MG/24 HOURS TOPICAL PATCH TD SCH (11:26)
[2019-04-30] MEDS: BACITRACIN 15 GM TUBE TOPICAL OINTMENT TP SCH ×2 (11:26→22:08)
[2019-04-30] MEDS: PRENATAL VITAMINS W/ FOLIC ACID TABLET (FP) PO SCH (11:27)
[2019-04-30] MEDS: SERTRALINE HCL 50 MG TABLET (FP) PO SCH (11:27)
[2019-04-30] MEDS: BUPRENORPHINE/NALOXONE 4 MG/1 MG FILM PACKET SL SCH (14:39)
[2019-04-30] MEDS: THIAMINE HCL 100 MG TABLET (FP) PO SCH (22:08)
[2019-04-30] MEDS: LIDOCAINE PATCH REMOVAL MC SCH (22:08)
[2019-05-01] MEDS: BUPRENORPHINE/NALOXONE 8 MG/2 MG FILM PACKET SL SCH (05:55)
[2019-05-01] MEDS: PRENATAL VITAMINS W/ FOLIC ACID TABLET (FP) PO SCH (11:00)
[2019-05-01] MEDS: NICOTINE 21 MG/24 HOURS TOPICAL PATCH TD SCH (11:00)
[2019-05-01] MEDS: LIDOCAINE 5% TOPICAL PATCH TP SCH (11:01)
[2019-05-01] MEDS: SERTRALINE HCL 50 MG TABLET (FP) PO SCH (11:01)
[2019-05-01] MEDS: BACITRACIN 15 GM TUBE TOPICAL OINTMENT TP SCH ×2 (11:01→22:34)
--- NOTE | 2019-05-01 11:29 | PN ---
[facility] Progress Note Note: This brief writer and pt called pt's primary care/suboxone clinic at [facility] at Ph: to secure follow up appointment for this patient when discharged. Pt is scheduled to discharge on Saturday. Spoke with the biomedical field service engineer who states that pt's previous provider,Dr. Ben Cunningham no longer works at the facility. Pt will be seeing bernard Zelaya,Nurse Practitioner. Appointment has been made for patient for Saturday05/04/19 at 2:00 pm for follow up to get his Suboxone prescription after discharge. Vital Signs - 24 hr 05/01/19 05/01/19 00:30 07:22 Temperature 97.5 F L Pulse Rate 81 Respiratory 18 18 Rate Blood Pressure 121/76 plan:Follow up as above after discharge.
[2019-05-01] MEDS: BUPRENORPHINE/NALOXONE 4 MG/1 MG FILM PACKET SL SCH (13:32)
[2019-05-01] MEDS: MAG HYDROX/AL HYDROX/SIMETH 30 ML UNIT-DOSE CUP PO PRN (17:26)
[2019-05-01] MEDS: LIDOCAINE PATCH REMOVAL MC SCH (22:34)
[2019-05-01] MEDS: THIAMINE HCL 100 MG TABLET (FP) PO SCH (22:34)
[2019-05-02] MEDS: BUPRENORPHINE/NALOXONE 8 MG/2 MG FILM PACKET SL SCH (06:17)
[2019-05-02] MEDS: SERTRALINE HCL 50 MG TABLET (FP) PO SCH (10:18)
[2019-05-02] MEDS: LIDOCAINE 5% TOPICAL PATCH TP SCH (10:18)
[2019-05-02] MEDS: PRENATAL VITAMINS W/ FOLIC ACID TABLET (FP) PO SCH (10:18)
[2019-05-02] MEDS: NICOTINE 21 MG/24 HOURS TOPICAL PATCH TD SCH (10:18)
[2019-05-02] MEDS: BACITRACIN 15 GM TUBE TOPICAL OINTMENT TP SCH ×2 (10:19→22:29)
[2019-05-02] MEDS: CYCLOBENZAPRINE HCL 10 MG TABLET (FP) PO PRN (10:23)
[2019-05-02] MEDS: BUPRENORPHINE/NALOXONE 4 MG/1 MG FILM PACKET SL SCH (14:05)
[2019-05-02] MEDS: LIDOCAINE PATCH REMOVAL MC SCH (22:29)
[2019-05-02] MEDS: THIAMINE HCL 100 MG TABLET (FP) PO SCH (22:30)
[2019-05-03] MEDS: BUPRENORPHINE/NALOXONE 8 MG/2 MG FILM PACKET SL SCH (06:18)
[2019-05-03] MEDS: NICOTINE 21 MG/24 HOURS TOPICAL PATCH TD SCH (10:55)
[2019-05-03] MEDS: PRENATAL VITAMINS W/ FOLIC ACID TABLET (FP) PO SCH (10:55)
[2019-05-03] MEDS: LIDOCAINE 5% TOPICAL PATCH TP SCH (10:55)
[2019-05-03] MEDS: SERTRALINE HCL 50 MG TABLET (FP) PO SCH (10:55)
[2019-05-03] MEDS: BACITRACIN 15 GM TUBE TOPICAL OINTMENT TP SCH ×2 (10:56→22:12)
[2019-05-03] MEDS: BUPRENORPHINE/NALOXONE 4 MG/1 MG FILM PACKET SL SCH (13:49)
--- NOTE | 2019-05-03 14:43 | PN ---
[facility] Progress Note Note: Patient is scheduled for discharge tomorrow. Script for 30 days supply of Remeron 15 mg/hs will be electronically transmitted to [facility] at [address] [place] [address]
[2019-05-03] MEDS: LIDOCAINE PATCH REMOVAL MC SCH (22:12)
[2019-05-03] MEDS: THIAMINE HCL 100 MG TABLET (FP) PO SCH (22:12)
[2019-05-04] MEDS: BUPRENORPHINE/NALOXONE 8 MG/2 MG FILM PACKET SL SCH (05:59)
[2019-05-04 07:22] VITALS: BP 107/77; PULSE 86; TEMP 97.5
--- NOTE | 2019-05-04 09:40 | DS ---
[facility] Rehab Discharge Summary - [facility] Rehab Discharge Summary Admission Date: 04/10/19 Discharge Date: 05/04/19 - History Present History: Cannabis dependence, Cocaine dependence, Opioid dependence Additional Comments: Pt is a 39 y/o male with a hx of OLAF on Suboxone MAT admitted to rehab. Pt completed rehab today and will follow up with suboxone treatment with primary prescriber at [facility] with Mariah Zelaya NP. Spoke with provider today and appointment rescheduled from today at 2:00 P.M to 05/05/19 at 9:30 A.M due to transportation delays. Pertinent Past History: Hep C ADHD PTSD Bipolar Disorder - Discharge Physical Exam Vital Signs: Vital Signs Temperature 97.5 F L 05/04/19 07:22 Pulse Rate 86 05/04/19 07:22 Respiratory Rate 18 05/04/19 07:22 Blood Pressure 107/77 05/04/19 07:22 O2 Sat by Pulse Oximetry (%) Alert o x 3 oob ambulating with steady gait nad Cardiac:s1 s2, rrr Lungs:cta,lilliam. Extremities/Skin:No edema or cyanosis;right valentine with clean pink healing wound about 1"x1/2". Pertinent Admission Physical Exam Findings: Pt arrived to rehab with an old wound on right lower valentine area. completed antibiotics therapy while in rehab - Treatment Discharge Condition: Discharge condition good Hospital Course: Rehabilitated safely and responded well - Medication Discharge Medications: Ambulatory Orders Sertraline HCl [Zoloft -] 50 mg PO DAILY #30 tablet 05/03/19 - Medication-Assisted Treatment (MAT) Medication-Assisted Treatment (MAT): Yes Medication Prescribed: Suboxone MAT Follow-up Referral: [facility] with Mariah Zelaya NP Ph: - Discharge Instructions Diet, activity, other medical instructions: Diet:Regular Activity: oob ad cathy Other medical instructions:Follow up with primary care and suboxone provider, Mariah Zelaya NP at [facility] on 05/05/19 at 9:30 A.M as scheduled. - Diagnosis (1) Cocaine dependence Current Visit: Yes Status: Chronic Qualifiers: Substance use status: uncomplicated Qualified Code(s): F14.20 - Cocaine dependence, uncomplicated (2) Opioid dependence Current Visit: Yes Status: Chronic Qualifiers: Substance use status: in remission Qualified Code(s): F11.21 - Opioid dependence, in remission (3) ADHD (attention deficit hyperactivity disorder) Current Visit: Yes Status: Chronic (4) Bipolar disorder Current Visit: Yes Status: Chronic (5) PTSD (post-traumatic stress disorder) Current Visit: Yes Status: Chronic (6) Hepatitis C Current Visit: Yes Status: Resolved (7) Encounter for monitoring Suboxone maintenance therapy Current Visit: Yes Status: Chronic (8) Nicotine dependence Current Visit: Yes Status: Chronic Qualifiers: Nicotine product type: cigarettes Substance use status: uncomplicated Qualified Code(s): F17.210 - Nicotine dependence, cigarettes, uncomplicated (9) Cannabis dependence, uncomplicated Current Visit: Yes Status: Chronic - Follow-up Referral Minutes to complete discharge: 30 - AMA Did Patient Leave Against Medical Advice: No Additional Comments: P met with his counselor, Kenzie Hicks and pt has been referred to [facility] program on [address] [place] [address] for CD aftercare.
[2019-05-04] MEDS: LIDOCAINE 5% TOPICAL PATCH TP SCH (10:45)
[2019-05-04] MEDS: NICOTINE 21 MG/24 HOURS TOPICAL PATCH TD SCH (10:50)
[2019-05-04] MEDS: PRENATAL VITAMINS W/ FOLIC ACID TABLET (FP) PO SCH (10:50)
[2019-05-04] MEDS: BACITRACIN 15 GM TUBE TOPICAL OINTMENT TP SCH (10:50)
[2019-05-04] MEDS: SERTRALINE HCL 50 MG TABLET (FP) PO SCH (10:50)
[2019-05-04] MEDS ORDERED: BUPRENORPHINE/NALOXONE 4 MG/1 MG FILM PACKET SL ONE (12:30)
== END 2019-05-04 12:25 | disposition home or self-care (01) | DRG 772 ==
LOC: YASAS 14:49 → Y5N 14:50
PROVIDERS: ADMIT Neuromusculoskeletal Medicine & OMM; ATTEND Neuromusculoskeletal Medicine & OMM
PROC: HZ42ZZZ Group Counseling for Substance Abuse Treatment, Cognitive-Behavioral (ICD-10-PCS; principal; 2019-04-10)
DX: F11.20 Opioid dependence, uncomplicated (principal); F14.20 Cocaine dependence, uncomplicated; F12.20 Cannabis dependence, uncomplicated; F17.210 Nicotine dependence, cigarettes, uncomplicated; F19.282 Other psychoactive substance dependence with psychoactive substance-induced sleep disorder; F19.24 Other psychoactive substance dependence with psychoactive substance-induced mood disorder; F31.9 Bipolar disorder, unspecified; F90.9 Attention-deficit hyperactivity disorder, unspecified type; F43.10 Post-traumatic stress disorder, unspecified; B18.2 Chronic viral hepatitis C; M54.89 Other dorsalgia; Z51.81 Encounter for therapeutic drug level monitoring; Z59.0 Homelessness; S81.802A Unspecified open wound, left lower leg, initial encounter; Y00.XXXA Assault by blunt object, initial encounter; Y93.89 Activity, other specified; Y92.414 Local residential or business street as the place of occurrence of the external cause; Y99.8 Other external cause status

== ENCOUNTER 2019-09-25 21:42 | Inpatient (IN) | payer OTHER ==
[2019-09-25 22:29] VITALS: BMI 22.3
--- NOTE | 2019-09-25 22:43 | BHS.RME ---
Substance Use & Tx History - Substance Use History Alcohol Substance amount: 1 bottle [place] Frequency of use: Daily Date of Last Use: 09/25/19 Physical/Psych/Mental Status - Behavior General Behavior: Increased activity (restlessness, agitation) Eye Contact: Decreased - Cooperativeness Cooperativeness: Hostile (denies current SI / HI) - Physical Health Problems Is patient presently having any pain?: Yes (LBP ) Does patient presently have any injuries (include location): No Does patient currently have a fever: No CIWA Nausea/Vomitin Muscle Tremors: None Anxiety: 4-Mod. Anxious/Guarded Agitation: 2 Paroxysmal Sweats: 2 Orientation: 2-Disoriented Date<2 days Tacttile Disturbances: 0-None Auditory Disturbances: 0-None Visual Disturbances: 0-None Headache: 3-Moderate CIWA-Ar Total Score: 16
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
[2019-09-25] MEDS ORDERED: MELATONIN 5 MG TABLETS PO PRN (23:31)
[2019-09-25] MEDS ORDERED: BISMUTH SUBSALICYLATE 524 MG/30 ML UD PO PRN (23:31)
[2019-09-25] MEDS ORDERED: MENTHOL/PHENOL 1 EACH UD MM PRN (23:31)
[2019-09-25] MEDS ORDERED: MAGNESIUM CITRATE 300 ML BOTTLE PO PRN (23:31)
[2019-09-25] MEDS ORDERED: MAG HYDROX/AL HYDROX/SIMETH 30 ML UNIT-DOSE CUP PO PRN (23:31)
[2019-09-25] MEDS ORDERED: METHOCARBAMOL 500 MG TABLET PO PRN (23:31)
[2019-09-25] MEDS ORDERED: hydrOXYzine PAMOATE 25 MG CAPSULE (FP) PO PRN (23:31)
[2019-09-25] MEDS ORDERED: ACETAMINOPHEN 325 MG TABLET (FP) PO PRN ×2 (23:31)
[2019-09-25] MEDS ORDERED: MAGNESIUM HYDROX 2400MG/30ML ORAL SUSPENSION 30 ML CUP PO PRN (23:31)
[2019-09-25] MEDS ORDERED: diazePAM 5 MG TABLET PO PRN (23:32)
[2019-09-25] MEDS ORDERED: TRIMETHOBENZAMIDE HCL 200MG/2ML INJ IM ONE (23:32)
[2019-09-26] MEDS: diazePAM 5 MG TABLET PO ONE (00:11)
[2019-09-26] MEDS: diazePAM 5 MG TABLET PO SCH ×4 (00:11→22:59)
[2019-09-26 09:30] LABS: HEMATOCRIT 38.9 % (35.4-49); HEMOGLOBIN 13.5 GM/dL (11.7-16.9); MCH 30.5 pg (25.7-33.7); MCHC 34.6 g/dl (32.0-35.9); MEAN CELL VOLUME 87.9 fl (80-96); MEAN PLT VOLUME 7.6 fl (7.5-11.1); PLATELET COUNT 262 K/MM3 (134-434); RBC 4.43 M/mm3 (4.00-5.60); RDW 13.6 % (11.9-15.9)
[2019-09-26 09:41] LABS: ALBUMIN 3.6 g/dl (3.4-5.0); BILIRUBIN,TOTAL 0.7 mg/dL (0.2-1); BLOOD UREA NITROGEN 21.4 mg/dL (7-18); CALCIUM 8.8 mg/dL (8.5-10.1); CREATININE 0.8 mg/dL (0.55-1.3)
[2019-09-26] MEDS: PRENATAL VITAMINS W/ FOLIC ACID TABLET (FP) PO SCH (10:44)
[2019-09-26] MEDS ORDERED: cloNIDine HCL 0.1 MG TABLET PO PRN (12:08)
--- NOTE | 2019-09-26 12:08 | PN ---
S CIWA - CIWA Score Nausea/Vomitin-Mild Nausea/No Vomiting Muscle Tremors: 2 Anxiety: 1-Mildly Anxious Agitation: 1-Slight > Activity Paroxysmal Sweats: 1-Minimal Palms Moist Orientation: 0-Oriented Tacttile Disturbances: 0-None Auditory Disturbances: 0-None Visual Disturbances: 0-None Headache: 0-None Present CIWA-Ar Total Score: 6 BHS Progress Note (SOAP) Subjective: pt states he is OK. Pt has h/o OUD and was admitted for alcohol detox. Pt is on Bupe/naloxone and rec'd xanax on 08/26/19. Utox pos yesterday for opiiods and Bupe. Pt on valium detox O: Vital Signs - 24 hr 09/25/19 09/25/19 09/26/19 22:23 23:06 00:14 Temperature 98.2 F 98.2 F 97.9 F Pulse Rate 86 86 75 Respiratory 20 20 18 Rate Blood Pressure 130/74 130/74 129/75 09/26/19 09/26/19 09/26/19 03:30 05:59 10:04 Temperature 97.9 F 98.1 F Pulse Rate 63 76 Respiratory 18 18 18 Rate Blood Pressure 112/57 L 120/70 Laboratory Tests 09/26/19 09/26/19 09/26/19 07:00 07:00 07:00 WBC 8.0 RBC 4.43 Hgb 13.5 Hct 38.9 MCV 87.9 MCH 30.5 MCHC 34.6 RDW 13.6 Plt Count 262 D MPV 7.6 Sodium 140 Potassium 4.0 Chloride 108 H Carbon Dioxide 28 Anion Gap 5 L BUN 21.4 H Creatinine 0.8 Est GFR (CKD-EPI)AfAm 131.34 Est GFR (CKD-EPI)NonAf 113.32 Random Glucose 89 Calcium 8.8 Total Bilirubin 0.7 AST 26 ALT 32 Alkaline Phosphatase 83 Total Protein 7.0 Albumin 3.6 RPR Titer Nonreactive a/p: AUD- continue valium detox OUD- pt had a low COWs score. not on detox meds. Has an active Bupe prescription. Pt wihtout withdrawal Sx complaints today
[2019-09-26] MEDS ORDERED: hydrOXYzine PAMOATE 25 MG CAPSULE (FP) PO PRN (12:09)
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
[2019-09-26] MEDS: THIAMINE HCL 100 MG TABLET (FP) PO SCH (22:59)
[2019-09-27] MEDS: diazePAM 5 MG TABLET PO SCH ×2 (07:19→17:05)
[2019-09-27] MEDS: SERTRALINE HCL 50 MG TABLET (FP) PO SCH (11:22)
[2019-09-27] MEDS: BUPRENORPHINE/NALOXONE 8 MG/2 MG FILM PACKET SL SCH ×3 (11:22→22:58)
[2019-09-27] MEDS: PRENATAL VITAMINS W/ FOLIC ACID TABLET (FP) PO SCH (11:22)
[2019-09-27] MEDS ORDERED: diazePAM 5 MG TABLET PO PRN ×2 (13:10→13:12)
--- NOTE | 2019-09-27 13:14 | PN ---
S CIWA - CIWA Score Nausea/Vomitin-Mild Nausea/No Vomiting Muscle Tremors: None Anxiety: 4-Mod. Anxious/Guarded Agitation: 4-Moderately Restless Paroxysmal Sweats: 2 Orientation: 0-Oriented Tacttile Disturbances: 0-None Auditory Disturbances: 0-None Visual Disturbances: 0-None Headache: 0-None Present CIWA-Ar Total Score: 11 S COWS - Scale Resting Pulse: 0= VT 80 or Below Sweatin=Flushed/Facial Moisture Restless Observation: 1= Difficult to Sit Still Pupil Size: 1= Pupils >than Normal Bone or Joint Aches: 1= Mild Discomfort Runny Nose/ Eye Tearin= None GI Upset > 30mins: 2= Nausea/Diarrhea Tremor Observation of Outstretched Hands: 0= None Yawning Observation: 0= None Anxiety or Irritability: 2=Irritable/Anxious Goose Flesh Skin: 0=Smooth Skin COWS Score: 9 BHS Progress Note (SOAP) Subjective: Patient admitted for Alcohol withdrawal symptoms. Also had relapse of heroin use while on suboxone mat. IStop shows last prescription of Suboxone 09/08/2019. Patient state he lost medication. Now is complaining of opiod withdrawals. Admitted on 09/25/19 and has not had any opiates/bup since admission. Currently on Valium detox. States he will sign out and use "dope" if he cannot be restarted on Suboxone. Patient explained that if treatment restarted, he will have to follow up with provider immediately after discharge and contact his insurance plan as his prescription is still active and insurance will not pay for another prescription. Patient understands information provided and will follow up with provider upon discharge. Objective: 09/27/19 13:18 Vital Signs Temperature 98.2 F 09/27/19 11:46 Pulse Rate 77 09/27/19 11:46 Respiratory Rate 18 09/27/19 11:46 Blood Pressure 126/82 09/27/19 11:46 O2 Sat by Pulse Oximetry (%) Laboratory Tests 09/26/19 09/26/19 09/26/19 07:00 07:00 07:00 WBC 8.0 RBC 4.43 Hgb 13.5 Hct 38.9 MCV 87.9 MCH 30.5 MCHC 34.6 RDW 13.6 Plt Count 262 D MPV 7.6 Sodium 140 Potassium 4.0 Chloride 108 H Carbon Dioxide 28 Anion Gap 5 L BUN 21.4 H Creatinine 0.8 Est GFR (CKD-EPI)AfAm 131.34 Est GFR (CKD-EPI)NonAf 113.32 Random Glucose 89 Calcium 8.8 Total Bilirubin 0.7 AST 26 ALT 32 Alkaline Phosphatase 83 Total Protein 7.0 Albumin 3.6 RPR Titer Nonreactive PE alert and oriented x 3 skin +facial flushing +perrla eoms intact bl gi nt, nd ext full rom, amb ad cathy anxious and restless Assessment: 09/27/19 13:19 opiod withdrawal sx alcohol withdrawal suboxone mat Plan: continue detox start suboxone 8mg sl tid d/c in am
[2019-09-27] MEDS: THIAMINE HCL 100 MG TABLET (FP) PO SCH (22:58)
[2019-09-28] MEDS: BUPRENORPHINE/NALOXONE 8 MG/2 MG FILM PACKET SL SCH ×2 (05:57→14:03)
[2019-09-28] MEDS: diazePAM 5 MG TABLET PO ONE (05:57)
[2019-09-28] MEDS: SERTRALINE HCL 50 MG TABLET (FP) PO SCH (10:28)
[2019-09-28] MEDS: PRENATAL VITAMINS W/ FOLIC ACID TABLET (FP) PO SCH (10:28)
--- NOTE | 2019-09-28 10:31 | EKG ---
Test Reason : Blood Pressure : / mmHG Vent. Rate : 066 BPM Atrial Rate : 066 BPM P-R Int : 174 ms QRS Dur : 090 ms QT Int : 410 ms P-R-T Axes : 059 039 036 degrees QTc Int : 429 ms NORMAL SINUS RHYTHM NORMAL ECG WHEN COMPARED WITH ECG OF 25-DEC-2017 16:25, NO SIGNIFICANT CHANGE WAS FOUND Confirmed by Raulito Reno ([id number]) on 09/28/2019 10:31:30 AM Referred By: Justen Bazzi Confirmed By:Raulito Reno
[2019-09-28 11:09] VITALS: BP 106/66; PULSE 74; TEMP 97.5
--- NOTE | 2019-09-28 14:17 | PN ---
[facility] CIWA - CIWA Score Nausea/Vomitin-No Nausea/No Vomiting Muscle Tremors: None Anxiety: 1-Mildly Anxious Agitation: 0-Normal Activity Paroxysmal Sweats: No Perspiration Orientation: 0-Oriented Tacttile Disturbances: 0-None Auditory Disturbances: 0-None Visual Disturbances: 0-None Headache: 0-None Present CIWA-Ar Total Score: 1 S Progress Note (SOAP) Subjective: alert,no complaining Objective: 09/28/19 14:15 Vital Signs Temperature 97.5 F L 09/28/19 09:09 Pulse Rate 74 09/28/19 09:09 Respiratory Rate 18 09/28/19 09:09 Blood Pressure 106/66 09/28/19 09:09 O2 Sat by Pulse Oximetry (%) Assessment: 09/28/19 14:16 detox completed,no withdrawal symptom Plan: discharge today,follow up with after care program as arrangement
--- NOTE | 2019-09-28 14:22 | DS ---
[facility] Detox Discharge Summary Admission Date: 09/25/19 Discharge Date: 09/28/19 - History Present History: Alcohol Dependence, Cocaine Dependence Additional Comments: alert,oriented x 3 ambulation on the unit no abdominal pain stable for discharge discharge time 3o mins Pertinent Past History: hepatitis c - Physical Exam Results Vital Signs: Vital Signs Temperature 97.5 F L 09/28/19 09:09 Pulse Rate 74 09/28/19 09:09 Respiratory Rate 18 09/28/19 09:09 Blood Pressure 106/66 09/28/19 09:09 O2 Sat by Pulse Oximetry (%) Pertinent Admission Physical Exam Findings: withdrawal signs and symptom Vital Signs Temperature 97.5 F L 09/28/19 09:09 Pulse Rate 74 09/28/19 09:09 Respiratory Rate 18 09/28/19 09:09 Blood Pressure 106/66 09/28/19 09:09 O2 Sat by Pulse Oximetry (%) Laboratory Last Values WBC 8.0 K/mm3 (4.0-10.0) 09/26/19 07:00 RBC 4.43 M/mm3 (4.00-5.60) 09/26/19 07:00 Hgb 13.5 GM/dL (11.7-16.9) 09/26/19 07:00 Hct 38.9 % (35.4-49) 09/26/19 07:00 MCV 87.9 fl (80-96) 09/26/19 07:00 MCH 30.5 pg (25.7-33.7) 09/26/19 07:00 MCHC 34.6 g/dl (32.0-35.9) 09/26/19 07:00 RDW 13.6 % (11.9-15.9) 09/26/19 07:00 Plt Count 262 K/MM3 (134-434) D 09/26/19 07:00 MPV 7.6 fl (7.5-11.1) 09/26/19 07:00 Sodium 140 mmol/L (136-145) 09/26/19 07:00 Potassium 4.0 mmol/L (3.5-5.1) 09/26/19 07:00 Chloride 108 mmol/L (98-107) H 09/26/19 07:00 Carbon Dioxide 28 mmol/L (21-32) 09/26/19 07:00 Anion Gap 5 MMOL/L (8-16) L 09/26/19 07:00 BUN 21.4 mg/dL (7-18) H 09/26/19 07:00 Creatinine 0.8 mg/dL (0.55-1.3) 09/26/19 07:00 Est GFR (CKD-EPI)AfAm 131.34 09/26/19 07:00 Est GFR (CKD-EPI)NonAf 113.32 09/26/19 07:00 Random Glucose 89 mg/dL (74-106) 09/26/19 07:00 Calcium 8.8 mg/dL (8.5-10.1) 09/26/19 07:00 Total Bilirubin 0.7 mg/dL (0.2-1) 09/26/19 07:00 AST 26 U/L (15-37) 09/26/19 07:00 ALT 32 U/L (13-61) 09/26/19 07:00 Alkaline Phosphatase 83 U/L (45-117) 09/26/19 07:00 Total Protein 7.0 g/dl (6.4-8.2) 09/26/19 07:00 Albumin 3.6 g/dl (3.4-5.0) 09/26/19 07:00 RPR Titer Nonreactive (NONREACTIVE) 09/26/19 07:00 - Treatment Hospital Course: Detox Protocol Followed, Detoxed Safely, Responded well, Discharged Condition Good Patient has Accepted a Rehab Referral to: declined - Medication Discharge Medications: Ambulatory Orders Sertraline HCl [Zoloft -] 50 mg PO DAILY #30 tablet 05/03/19 Buprenorphine/Naloxone [Suboxone 8Mg/2Mg Sl Film -] 1 each SL TID 09/25/19 Dextroamphetamine/Amphetamine [Adderall 10 mg Tablet] 40 mg PO DAILY 09/25/19
== END 2019-09-28 14:30 | disposition home or self-care (01) | DRG 773 ==
LOC: YASAS 21:42 → Y6N 23:25
PROVIDERS: ADMIT Allergy & Immunology; ATTEND Allergy & Immunology
PROC: HZ2ZZZZ Detoxification Services for Substance Abuse Treatment (ICD-10-PCS; principal; 2019-09-25)
DX: F10.230 Alcohol dependence with withdrawal, uncomplicated (principal); F11.23 Opioid dependence with withdrawal; F14.20 Cocaine dependence, uncomplicated; F17.210 Nicotine dependence, cigarettes, uncomplicated; F19.24 Other psychoactive substance dependence with psychoactive substance-induced mood disorder; F31.9 Bipolar disorder, unspecified; F90.9 Attention-deficit hyperactivity disorder, unspecified type; B18.2 Chronic viral hepatitis C; Z91.013 Allergy to seafood; Z59.0 Homelessness; Z91.19 Patient's noncompliance with other medical treatment and regimen
CPT/HCPCS: 36415; 80053; 85027; 86593; 93005; 93010